=== PATIENT | female | born 1995 | race Caucasian/White ===

== ENCOUNTER 2017-10-23 15:27 | Emergency (ER) | payer MEDICAID ==
[~2017-10-23] VITALS: Ht 157.5 cm; Wt 45.0 kg
[2017-10-23] MEDS ORDERED: ONDANSETRON ODT 4 MG PO ONE (16:00)
[2017-10-23 16:15] LABS: BASOPHILS # (AUTO) 0.05 x10^3/uL (0-0.1); BASOPHILS % (AUTO) 0 % (0-1); EOSINOPHILS # (AUTO) 0.02 x10^3/uL (0-0.4); EOSINOPHILS % (AUTO) 0 % (1-7); LYMPHOCYTES % (AUTO) 14 % (22-44); MD NO; MEAN CORPUSCULAR HGB CONC 34.3 g/dL (32.4-35.8); MEAN CORPUSCULAR VOLUME 96.3 fL (80-100); MEAN PLATELET VOLUME 9.8 fL (7.4-10.4); MONOCYTES # (AUTO) 0.81 x10^3/uL (0.2-0.8); MONOCYTES % (AUTO) 6 % (2-9); NEUTROPHILS # (AUTO) 10.09 x10^3/uL (1.8-6.8); NEUTROPHILS % (AUTO) 79 % (42-75); PLATELET COUNT 245 x10^3/uL (130-400); RED BLOOD COUNT 4.11 x10^6/uL (3.82-5.3); RED CELL DISTRIBUTION WIDTH 12.4 % (9.6-15.2)
[2017-10-23 16:28] LABS: ALBUMIN 3.6 g/dL (3.4-5.0); ANION GAP 5 mmol/L (5-15); CALCIUM 8.8 mg/dL (8.5-10.1); CHLORIDE 107 mmol/L (98-107)
[2017-10-23] MEDS ORDERED: ONDANSETRON ODT 4 MG ONE (17:41)
[2017-10-23] MEDS ORDERED: OMNIPAQUE 350 MG/ML, 100ML BOTTLE ONE (18:00)
[2017-10-23] MEDS ORDERED: MORPHINE SULFATE 4 MG/ML, 1ML IVPush PRN (18:00)
[2017-10-23] MEDS ORDERED: MORPHINE SULFATE 4 MG/ML, 1ML ONE (18:10)
[2017-10-23 18:30] LABS: MICROSCOPIC INDICATED
[2017-10-23 18:37] LABS: CULTURE INDICATED? NO
[2017-10-23] MEDS ORDERED: SODIUM CHLORIDE FLUSH 10ML SYR IVF ONE (19:00)
[2017-10-23 20:14] VITALS: BP 104/67
== END 2017-10-23 20:16 | disposition home or self-care (01) ==
LOC: ED 20:10
DX: R10.32 Left lower quadrant pain (principal)
CPT/HCPCS: 36415; 74177; 76830; 80048; 81001; 82040; 84703; 85025; 96374; 99285; Q0162; Q9967

== ENCOUNTER 2018-04-04 19:16 | Inpatient (IN) | payer MEDICAID ==
[~2018-04-04] VITALS: Ht 157.5 cm; Wt 43.1 kg
[2018-04-04] MEDS ORDERED: KETOROLAC 30 MG/1 ML IVPush ONE (20:00)
[2018-04-04] MEDS ORDERED: ONDANSETRON 2MG/ML, 2ML IVPush ONE (20:00)
[2018-04-04] MEDS ORDERED: SODIUM CHLORIDE FLUSH 10ML SYR IVF ONE (20:00)
[2018-04-04] MEDS ORDERED: SODIUM CHLORIDE 0.9% 1,000ML IVBOLUS ONE (20:00)
[2018-04-04] MEDS ORDERED: ONDANSETRON 2MG/ML, 2ML ONE (20:08)
[2018-04-04] MEDS ORDERED: KETOROLAC 30 MG/1 ML ONE (20:08)
[2018-04-04 20:16] LABS: BASOPHILS % (AUTO) 0 % (0-1); EOSINOPHILS % (AUTO) 0 % (1-7); LYMPHOCYTES # (AUTO) 0.54 x10^3/uL (1-3.4); LYMPHOCYTES % (AUTO) 5 % (22-44); MD NO; MEAN CORPUSCULAR HEMOGLOBIN 33.2 pg (27.0-34.8); MEAN CORPUSCULAR HGB CONC 34.8 g/dL (32.4-35.8); MEAN CORPUSCULAR VOLUME 95.5 fL (80-100); MEAN PLATELET VOLUME 9.9 fL (7.4-10.4); MONOCYTES # (AUTO) 0.62 x10^3/uL (0.2-0.8); MONOCYTES % (AUTO) 6 % (2-9); NEUTROPHILS # (AUTO) 9.79 x10^3/uL (1.8-6.8); NEUTROPHILS % (AUTO) 90 % (42-75); PLATELET COUNT 229 x10^3/uL (130-400); RED BLOOD COUNT 4.22 x10^6/uL (3.82-5.3); RED CELL DISTRIBUTION WIDTH 12.2 % (9.6-15.2)
[2018-04-04 20:18] LABS: CULTURE INDICATED? YES; MICROSCOPIC INDICATED
[2018-04-04 20:26] LABS: ALANINE AMINOTRANSFERASE 17 U/L (12-78); ANION GAP 9 mmol/L (5-15); CALCIUM 8.9 mg/dL (8.5-10.1); CHLORIDE 107 mmol/L (98-107); CREATININE 0.79 mg/dL (0.55-1.02)
[2018-04-04 20:30] LABS: ALKALINE PHOSPHATASE 59 U/L (45-117); BILIRUBIN,TOTAL 1.1 mg/dL (0.2-1.0); TOTAL PROTEIN 8.3 g/dL (6.4-8.2)
[2018-04-04] MEDS ORDERED: OMNIPAQUE 350 MG/ML, 100ML BOTTLE ONE (21:20)
[2018-04-04] MEDS ORDERED: CEFTRIAXONE PMX 1GM/50ML 50 ML IV ONE (22:00)
[2018-04-04] MEDS ORDERED: CEFTRIAXONE PMX 1GM/50ML 50 ML ONE (22:08)
[2018-04-04] MEDS ORDERED: morphine SULFATE 10 MG/ML, 1ML IVPush PRN (23:00)
[2018-04-04] MEDS ORDERED: ONDANSETRON 2MG/ML, 2ML IVPush PRN (23:00)
[2018-04-04] MEDS ORDERED: ACETAMINOPHEN 325 MG TABLET PO PRN (23:00)
[2018-04-04 23:02] VITALS: BP 101/65
[2018-04-04] MEDS: ONDANSETRON ODT 4 MG PO PRN (23:22)
[2018-04-04] MEDS: SODIUM CHLORIDE 0.9% 1,000 ML IV SCH (23:22)
[2018-04-05] VITALS (7 sets, daily range): BP systolic 87–118; BP diastolic 44–72
[2018-04-05] MEDS: ACETAMINOPHEN 500 MG TABLET PO PRN ×2 (02:19→14:40)
[2018-04-05 05:44] LABS: BASOPHILS # (AUTO) 0.02 x10^3/uL (0-0.1); BASOPHILS % (AUTO) 0 % (0-1); EOSINOPHILS % (AUTO) 0 % (1-7); LYMPHOCYTES # (AUTO) 0.96 x10^3/uL (1-3.4); LYMPHOCYTES % (AUTO) 10 % (22-44); MD NO; MEAN CORPUSCULAR HGB CONC 34.3 g/dL (32.4-35.8); MEAN CORPUSCULAR VOLUME 96.3 fL (80-100); MEAN PLATELET VOLUME 10.8 fL (7.4-10.4); MONOCYTES # (AUTO) 0.75 x10^3/uL (0.2-0.8); MONOCYTES % (AUTO) 8 % (2-9); NEUTROPHILS # (AUTO) 7.94 x10^3/uL (1.8-6.8); NEUTROPHILS % (AUTO) 82 % (42-75); PLATELET COUNT 199 x10^3/uL (130-400); RED BLOOD COUNT 3.68 x10^6/uL (3.82-5.3)
[2018-04-05] MEDS: SODIUM CHLORIDE 0.9% 1,000 ML IV SCH (08:03)
[2018-04-05] MEDS: KETOROLAC 30 MG/1 ML IV PRN ×2 (14:40→20:43)
[2018-04-05] MEDS: CEFTRIAXONE PMX 1GM/50ML 50 ML IV SCH (21:42)
[2018-04-06 00:48] VITALS: BP 102/64
[2018-04-06] MEDS: ACETAMINOPHEN 500 MG TABLET PO PRN (00:52)
[2018-04-06] MEDS: KETOROLAC 30 MG/1 ML IV PRN ×3 (02:59→20:04)
[2018-04-06] MEDS: SODIUM CHLORIDE 0.9% 1,000 ML IV SCH ×2 (02:59→14:02)
[2018-04-06 07:45] VITALS: BP 92/60
[2018-04-06 08:21] LABS: BASOPHILS # (AUTO) 0.02 x10^3/uL (0-0.1); BASOPHILS % (AUTO) 0 % (0-1); EOSINOPHILS # (AUTO) 0.04 x10^3/uL (0-0.4); EOSINOPHILS % (AUTO) 1 % (1-7); LYMPHOCYTES # (AUTO) 1.68 x10^3/uL (1-3.4); LYMPHOCYTES % (AUTO) 20 % (22-44); MD NO; MEAN CORPUSCULAR HEMOGLOBIN 32.8 pg (27.0-34.8); MEAN CORPUSCULAR VOLUME 96.4 fL (80-100); MEAN PLATELET VOLUME 9.6 fL (7.4-10.4); MONOCYTES # (AUTO) 0.98 x10^3/uL (0.2-0.8); MONOCYTES % (AUTO) 12 % (2-9); NEUTROPHILS # (AUTO) 5.52 x10^3/uL (1.8-6.8); NEUTROPHILS % (AUTO) 67 % (42-75); PLATELET COUNT 162 x10^3/uL (130-400); RED BLOOD COUNT 3.45 x10^6/uL (3.82-5.3); RED CELL DISTRIBUTION WIDTH 12.1 % (9.6-15.2)
[2018-04-06 08:31] LABS: ANION GAP 8 mmol/L (5-15); CHLORIDE 110 mmol/L (98-107)
[2018-04-06 13:35] VITALS: BP 115/74
[2018-04-06 18:56] VITALS: BP 110/75
[2018-04-06] MEDS: ONDANSETRON ODT 4 MG PO PRN (20:04)
[2018-04-06] MEDS: CEFTRIAXONE PMX 1GM/50ML 50 ML IV SCH (21:41)
[2018-04-07 00:38] VITALS: BP 103/66
[2018-04-07] MEDS: ACETAMINOPHEN 500 MG TABLET PO PRN (00:57)
[2018-04-07 05:02] LABS: BASOPHILS # (AUTO) 0.02 x10^3/uL (0-0.1); BASOPHILS % (AUTO) 0 % (0-1); EOSINOPHILS # (AUTO) 0.05 x10^3/uL (0-0.4); EOSINOPHILS % (AUTO) 1 % (1-7); LYMPHOCYTES # (AUTO) 2.26 x10^3/uL (1-3.4); LYMPHOCYTES % (AUTO) 26 % (22-44); MD NO; MEAN CORPUSCULAR HEMOGLOBIN 33.7 pg (27.0-34.8); MEAN CORPUSCULAR HGB CONC 34.8 g/dL (32.4-35.8); MEAN CORPUSCULAR VOLUME 96.9 fL (80-100); MEAN PLATELET VOLUME 10.1 fL (7.4-10.4); MONOCYTES # (AUTO) 1.25 x10^3/uL (0.2-0.8); MONOCYTES % (AUTO) 14 % (2-9); NEUTROPHILS # (AUTO) 5.17 x10^3/uL (1.8-6.8); NEUTROPHILS % (AUTO) 59 % (42-75); PLATELET COUNT 166 x10^3/uL (130-400); RED BLOOD COUNT 3.19 x10^6/uL (3.82-5.3); RED CELL DISTRIBUTION WIDTH 11.9 % (9.6-15.2)
[2018-04-07 05:07] LABS: ANION GAP 9 mmol/L (5-15); CALCIUM 8.4 mg/dL (8.5-10.1); CHLORIDE 110 mmol/L (98-107)
[2018-04-07 05:10] LABS: CREATININE 0.59 mg/dL (0.55-1.02)
[2018-04-07 07:10] VITALS: BP 94/57
[2018-04-07] MEDS ORDERED: CEFD300C37 PO (09:50)
[2018-04-07] MEDS ORDERED: PHEN-583 PO (09:56)
== END 2018-04-07 12:35 | disposition home or self-care (01) | DRG 690 ==
LOC: ED 19:55 → EDIP 22:00 → 3NE 22:57 → DCLOUNGE 04-07 12:20
PROVIDERS: ADMIT Hospitalist; ATTEND Hospitalist
DX: N10 Acute pyelonephritis (principal); I95.9 Hypotension, unspecified; M54.5 Low back pain; R00.0 Tachycardia, unspecified; Z87.440 Personal history of urinary (tract) infections; Z23 Encounter for immunization
CPT/HCPCS: 36415; 74177; 80048; 80053; 81001; 83605; 84703; 85025; 87077; 87086; 87186; 90656; 96374; 96375; G0378; J0696; J1885; J2405; Q0162; Q9967; J2270; J7030

== ENCOUNTER 2018-04-18 22:45 | Emergency (ER) | payer MEDICAID ==
[~2018-04-18] VITALS: Ht 157.5 cm; Wt 44.3 kg
[~2018-04-18 22:45] MED LIST: CEFD300C37 PO; PHEN-583 PO
[2018-04-19 00:07] LABS: MICROSCOPIC AUTO
[2018-04-19 00:10] LABS: CULTURE INDICATED? YES
[2018-04-19] MEDS ORDERED: MAALOX/HYOSCYAMINE/LIDOCAINE 45 ML BTL PO ONE (00:30)
[2018-04-19] MEDS ORDERED: ACETAMINOPHEN 500 MG TABLET PO ONE (00:30)
[2018-04-19] MEDS ORDERED: ONDANSETRON ODT 4 MG PO ONE (00:30)
[2018-04-19 00:32] LABS: BASOPHILS # (AUTO) 0.03 x10^3/uL (0-0.1); BASOPHILS % (AUTO) 0 % (0-1); EOSINOPHILS # (AUTO) 0.07 x10^3/uL (0-0.4); EOSINOPHILS % (AUTO) 1 % (1-7); LYMPHOCYTES # (AUTO) 2.97 x10^3/uL (1-3.4); LYMPHOCYTES % (AUTO) 43 % (22-44); MD NO; MEAN CORPUSCULAR HEMOGLOBIN 33.1 pg (27.0-34.8); MEAN CORPUSCULAR HGB CONC 34.2 g/dL (32.4-35.8); MEAN CORPUSCULAR VOLUME 96.8 fL (80-100); MEAN PLATELET VOLUME 9.1 fL (7.4-10.4); MONOCYTES # (AUTO) 0.41 x10^3/uL (0.2-0.8); MONOCYTES % (AUTO) 6 % (2-9); NEUTROPHILS # (AUTO) 3.49 x10^3/uL (1.8-6.8); NEUTROPHILS % (AUTO) 50 % (42-75); PLATELET COUNT 359 x10^3/uL (130-400); RED BLOOD COUNT 3.83 x10^6/uL (3.82-5.3); RED CELL DISTRIBUTION WIDTH 12.5 % (9.6-15.2)
[2018-04-19 00:36] LABS: ALBUMIN 3.9 g/dL (3.4-5.0); ANION GAP 5 mmol/L (5-15); CALCIUM 8.7 mg/dL (8.5-10.1); CHLORIDE 110 mmol/L (98-107)
[2018-04-19] MEDS ORDERED: ACETAMINOPHEN 325 MG TABLET ONE (00:41)
[2018-04-19] MEDS ORDERED: MAALOX/HYOSCYAMINE/LIDOCAINE 45 ML BTL ONE (00:41)
[2018-04-19] MEDS ORDERED: ONDANSETRON ODT 4 MG ONE (00:41)
[2018-04-19] MEDS ORDERED: ACETAMINOPHEN 500 MG TABLET ONE (00:47)
[2018-04-19 00:55] LABS: ALANINE AMINOTRANSFERASE 16 U/L (12-78); ALKALINE PHOSPHATASE 65 U/L (45-117); BILIRUBIN,TOTAL 0.5 mg/dL (0.2-1.0); CREATININE 0.64 mg/dL (0.55-1.02); TOTAL PROTEIN 7.9 g/dL (6.4-8.2)
[2018-04-19] MEDS ORDERED: LEVOFLOXACIN 750 MG TABLET ONE (03:19)
[2018-04-19 03:26] VITALS: BP 105/67
[2018-04-19] MEDS ORDERED: LEVOFLOXACIN 750 MG TABLET PO ONE (03:30)
== END 2018-04-19 03:34 | disposition home or self-care (01) ==
LOC: ED 23:56
DX: N10 Acute pyelonephritis (principal)
CPT/HCPCS: 36415; 76770; 80053; 81001; 81025; 85025; 87077; 87086; 93005; 99284; Q0162; 87186

== ENCOUNTER 2018-07-12 15:00 | Emergency (ER) | payer SELFPAY ==
[~2018-07-12] VITALS: Ht 157.5 cm; Wt 45.9 kg
--- NOTE | 2018-07-12 15:39 | NUR ---
Pt to 30 from lobby
[2018-07-12 15:58] LABS: BASOPHILS # (AUTO) 0.01 x10^3/uL (0-0.1); BASOPHILS % (AUTO) 0 % (0-1); EOSINOPHILS % (AUTO) 0 % (1-7); LYMPHOCYTES # (AUTO) 0.78 x10^3/uL (1-3.4); LYMPHOCYTES % (AUTO) 7 % (22-44); MD NO; MEAN CORPUSCULAR HEMOGLOBIN 32.6 pg (27.0-34.8); MEAN CORPUSCULAR HGB CONC 34.2 g/dL (32.4-35.8); MEAN CORPUSCULAR VOLUME 95.3 fL (80-100); MEAN PLATELET VOLUME 9.8 fL (7.4-10.4); MONOCYTES # (AUTO) 0.49 x10^3/uL (0.2-0.8); MONOCYTES % (AUTO) 4 % (2-9); NEUTROPHILS % (AUTO) 89 % (42-75); PLATELET COUNT 296 x10^3/uL (130-400); RED BLOOD COUNT 4.76 x10^6/uL (3.82-5.3); RED CELL DISTRIBUTION WIDTH 12.1 % (9.6-15.2)
[2018-07-12] MEDS ORDERED: KETOROLAC 30 MG/1 ML IM ONE (16:00)
[2018-07-12] MEDS ORDERED: ONDANSETRON ODT 4 MG PO ONE (16:00)
[2018-07-12 16:08] LABS: ALBUMIN 4.9 g/dL (3.4-5.0); ANION GAP 7 mmol/L (5-15); CALCIUM 9.5 mg/dL (8.5-10.1); CHLORIDE 109 mmol/L (98-107)
[2018-07-12 16:15] LABS: ALANINE AMINOTRANSFERASE 15 U/L (12-78); ALKALINE PHOSPHATASE 66 U/L (45-117); BILIRUBIN,TOTAL 0.9 mg/dL (0.2-1.0); CREATININE 0.89 mg/dL (0.55-1.02); TOTAL PROTEIN 9.5 g/dL (6.4-8.2)
[2018-07-12] MEDS ORDERED: ONDANSETRON ODT 4 MG ONE (16:17)
[2018-07-12] MEDS ORDERED: KETOROLAC 30 MG/1 ML ONE (16:17)
[2018-07-12 16:22] LABS: MICROSCOPIC AUTO
[2018-07-12 16:23] LABS: CULTURE INDICATED? YES
--- NOTE | 2018-07-12 16:38 | NUR ---
Annemarie armas in EDM - 07/12/18 at 1639 by FREEMAN PT'S K+ LOW, DR. SHAFER NOTIFIED. PT MEDICATED PER RHONA
[2018-07-12] MEDS ORDERED: HYDROcodone/APAP 5/325 TABLET PO ONE (17:00)
[2018-07-12] MEDS ORDERED: HYDROcodone/APAP 5/325 TABLET ONE (17:10)
[2018-07-12 17:26] VITALS: BP 102/62
--- NOTE | 2018-07-12 17:26 | NUR ---
pt in [place]
--- NOTE | 2018-07-12 17:46 | NUR ---
PT BACK FROM [place]. MEDICATED PER EMAR
--- NOTE | 2018-07-12 18:08 | NUR ---
PT'S CHART UP FOR RECHECK
== END 2018-07-12 18:22 | disposition home or self-care (01) ==
LOC: ED 18:16
DX: N30.00 Acute cystitis without hematuria (principal)
CPT/HCPCS: 36415; 76770; 80053; 81001; 84703; 85025; 87077; 87086; 96372; 99284; J1885; Q0162; 87186